=== PATIENT | male | born 1955 ===

== ENCOUNTER 2019-05-01 11:23 | Inpatient (IN) | payer MEDICAID ==
[2019-05-01] MEDS ORDERED: ALPRAZolam 0.25 MG (XANAX) TAB PO PRN (13:00)
[2019-05-01] MEDS ORDERED: LOPERAMIDE 2 MG (IMODIUM) TABLET PO PRN (13:00)
[2019-05-01] MEDS ORDERED: CALCIUM CARBONATE 500 MG (TUMS) TAB.CHEW PO PRN (13:00)
[2019-05-01] MEDS ORDERED: LACTULOSE SYRUP 10GM/15ML (ENULOSE) 30ML UDC PO PRN (13:00)
[2019-05-01] MEDS ORDERED: BISACODYL 10 MG SUPP (DULCOLAX) PR PRN (13:00)
[2019-05-01] MEDS ORDERED: guaiFENesin/CODEINE (ROBITUSSIN AC) 10ML UDC PO PRN (13:00)
[2019-05-01] MEDS ORDERED: DOCUSATE SODIUM 100 MG (COLACE) CAP PO PRN (13:00)
[2019-05-01] MEDS ORDERED: ENOXAPARIN 40 MG/0.4 ML (LOVENOX) SYR SC SCH (13:00)
[2019-05-01] MEDS ORDERED: MELATONIN 3 MG TABLET PO PRN (13:00)
[2019-05-01] MEDS ORDERED: ONDANSETRON 4 MG (ZOFRAN) ORAL DISSOLVE TAB PO PRN (13:00)
[2019-05-01] MEDS ORDERED: FLEET ENEMA ADULT 1 EA BTL PR PRN (13:00)
[2019-05-01] MEDS ORDERED: diphenhydrAMINE 25 MG TAB (BENADRYL) PO PRN (13:00)
[2019-05-01] MEDS ORDERED: CARV6.25 PO (13:53)
[2019-05-01] MEDS ORDERED: ASPI-999 PO (13:56)
[2019-05-01] MEDS ORDERED: RT-ALBUINH IH (13:56)
[2019-05-01] MEDS ORDERED: SACC250C PO (13:56)
[2019-05-01] MEDS ORDERED: VIGAMOX OD (13:56)
[2019-05-01] MEDS ORDERED: TIOT18CA2 IH (13:56)
[2019-05-01] MEDS ORDERED: PRED5DRO17 OD (13:56)
[2019-05-01] MEDS ORDERED: BUDE10.2 IH (13:56)
--- NOTE | 2019-05-01 14:00 | NUR ---
ENTERED MED REC USING [facility] DISCHARGE- I WILL UPDATE ONCE THE CONTINUING MEDS ARE ORDERED
--- NOTE | 2019-05-01 15:10 | NUR ---
Pt admitted to room 232-1, with an admitting diagnosis of S/P ARF, Acute Metabolic Encephalopathy on 05/01/19 from [facility] via w/c, accompanied by S/O, girlfriend, Rosalinda. KINGSTON HANSON introduced to surroundings, call light, bed controls, phone, TV, temperature control, lights, meal times, smoking policy, visitor policy, side rail policy, bathrooms and showers. Patient Rights given to patient in the handbook. KINGSTON HANSON acknowledges understanding that [facility] is not responsible for the loss or damage to any personal effects or valuables that are kept in the patients posession during their hospitalization. The following Patient Care Plans were discussed with the pt: Discharge Planning, Impaired Mobility, Self Care Deficit, Potential for falls/injury, Impaired Cognition. KINGSTON HANSON acknowledges understanding of Interdisciplinary Patient Education. Patient and/or family were informed about the Rapid Response Team and its purpose. Patient received Patient Rights Booklet, which includes Privacy Act Statement and Data Collection Information Summary. Pt to gym to work urvashi Logan PT upon arrival to unit.
--- NOTE | 2019-05-01 15:47 | Physical Therapy Evaluation ---
PT Evaluation-General Medical Diagnosis Admission Date May 01, 2019 at 15:10 Medical Diagnosis: resp. failure Onset Date: Apr 13, 2019 Therapy Diagnosis Therapy Diagnosis: impaired mobility, strength, endurance Referral Physician: Angela Agustin DO Reason for Referral: Evaluation/Treatment Medical History Pertinent Medical History: Arthritis, COPD, HTN Additional Medical History asthma, cataracts, glaucoma Social History Home: Single Level Current Living Status: Spouse PT Steps Into Home: 2 Prior Prior Level of Function SCALE: Activities may be completed with or without assistive devices. 9-Imilqbisss-xxdvews completes the activity by him/herself with no assistance from a helper. 5-Set-up or Clean-up Assistance-helper sets up or cleans up; patient completes activity. [place] assists only prior to or following the activity. 4-Supervision or Touching Assistance-helper provides verbal cues and/or touching/steadying and/or contact guard assistance as patient completes activity. Assistance may be provided throughout the activity or intermittently. 3-Partial/Moderate Assistance-helper does LESS THAN HALF the effort. [place] lifts, holds or supports trunk or limbs, but provides less than half the effort. 2-Substantial/Maximal Assistance-helper does MORE THAN HALF the effort. [place] lifts or holds trunk or limbs and provides more than half the effort. 2-Hwhiojpas-umybzy does ALL the effort. Patient does none of the effort to complete the activity. Or, the assistance of 2 or more helpers is required for the patient to complete the activity. If activity was not attempted, code reason: 7-Patient Refused. 9-Not Applicable-not attempted and the patient did not perform the activity before the current illness, exacerbation or injury. 10-Not Attempted due to Environmental Limitations-(lack of equipment, weather restraints, etc.). 88-Not Attempted due to Medical Conditions or Safety Concerns. Bed Mobility: 6 Transfers (B,C,W/C): 6 Gait: 6 Stairs: 6 Indoor Mobility (Ambulation): Independent Stairs: Independent PT Evaluation-Current Subjective Patient in family vehicle pre tx, agrees to PT, has no complaints of pain. Performs car transfer to with CGA. Pt/Family Goals to be independent at home Objective Patient Orientation: Person, Confused, Place Attachments: Oxygen ROM/Strength ROM Lower Extremities WNL Strength Lower Extremities 4/5 gross RLE, 4-/5 gross LLE Sensory Vision: Functional Hearing: Functional Sensation Right Lower Extremit: Impaired Sensation Left Lower Extremity: Impaired Sensation Lower Extremities Patient has intact light touch sensation in both legs but he states that it is decreased in both feet. Transfers Roll Left to Right (QC): 6 Sit to Lying (QC): 6 Lying to Sitting/Side of Bed(Q: 6 Sit to Stand (QC): 4 Chair/Trj-vo-Rxsws Xfer(QC): 4 Car Transfer (QC): 4 Patient performs bed mobility with independence, supine <-> sit with independence, sit <-> stand with CGA, transfers with CGA, car transfer CGA. Occasional cues for hand placement. Gait Does the Patient Walk?: Yes Mode of Locomotion: Walk Anticipated Mode of Locomotion: Walk Walk 10 feet (QC): 4 Walk 50 ft with 2 Turns(QC): 4 Walk 150 ft (QC): 88 Walking 10ft/uneven surface-QC: 4 Distance: 120', 50' Gait Assistive Device: FWW Comments/Gait Description Patient can ambulate 120' with a rolling walker with CGA. Patient ambulates with a fair surendra but slightly uncoordinated steps. Wheelchair Training Does the Pt Use a Wheelchair?: No Stairs #of Steps: 1 1 Step (curb) (QC): 4 4 Steps (QC): 88 12 Steps (QC): 88 Walking Assistive Device: Walker Patient can go up and down 1 steps using a rolling walker with CGA. Cues for foot placement and safety. Balance Sitting Static: Normal Sitting Dynamic: Normal Standing Static: Fair Standing Dynamic: Fair Assessment/Needs Patient has impaired mobility, strength, endurance. He has slightly uncoordinated steps during ambulation and poor endurance. Patient in recliner post tx with family in the room, OT has him right after PT. Rehab Potential: Fair PT Short Term Goals Short Term Goals Time Frame: May 08, 2019 Roll Left & Right: 6 Sit to lyin Lying to sitting on side of be: 6 Sit to stand: 4 Chair/egz-kc-ajzgv transfer: 4 Toilet transfer: 4 Walk 10 feet: 4 Walk 50 feet with two turns: 4 Walk 150 feet: 4 PT Mcfp Goals Mcfp Goals PT Mcfp Goals Time Frame: May 22, 2019 Roll Left & Right (QC): 6 Sit to Lying (QC): 6 Lying-Sitting on Side/Bed(QC): 6 Sit to Stand (QC): 6 Chair/Tcb-ap-Fndxv Xfer(QC): 6 Toilet Transfer (QC): 6 Car Transfer (QC): 6 Walk 10 feet (QC): 6 Walk 50ft with 2 Turns (QC): 6 Walk 150 ft (QC): 6 Walking 10ft on Uneven Surface: 6 1 Step (curb) (QC): 4 4 Steps (QC): 4 12 Steps (QC): 4 Picking up an Object (QC): 4 PT Plan Problem List Problem List: Activity Tolerance, Functional Strength, Safety, Balance, Gait, Transfer Treatment/Plan Treatment Plan: Continue Plan of Care Treatment Plan: Education, Functional Activity [place], Functional Strength, Group Therapy, Gait, Safety, Therapeutic Exercise, Transfers Treatment Duration: May 22, 2019 Frequency: Modified Program (IRF) Estimated Hrs Per Day: 1.5 hours per day Patient and/or Family Agrees t: Yes Safety Risks/Education Patient Education: Gait Training, Transfer Techniques, Steps, Correct Positioning, Safety Issues Teaching Recipient: Patient Teaching Methods: Demonstration, Discussion Response to Teaching: Reinforcement Needed Discharge Recommendations Plan Patient will perform bed mobility and transfer training, balance and endurance training, functional strengthening, stair training, gait training, and education, to improve functional mobility and independence at home. Therapy Discharge Recommendati: Home & Family Time/GCodes Time In: 1510 Time Out: 1540 Total Billed Treatment Time: 30 Total Billed Treatment 1 visit ANTHONYM 20' GT 10' DANNA MAURER PT May 01, 2019 15:47
--- NOTE | 2019-05-01 16:15 | Occupational Therapy Eval ---
OT Evaluation-General/PLF Medical Diagnosis Admission Date May 01, 2019 at 15:10 Medical Diagnosis: resp. failure Onset Date: Apr 13, 2019 Therapy Diagnosis Therapy Diagnosis: Impaired self care skills Referral Physician: Angela Agustin DO Medical History Pertinent Medical History: Arthritis, COPD, HTN Additional Medical History asthma, cataracts, glaucoma Current History Pt had acute hospitalization for respiratory distress and was intubated. Pt admitted to ARU this date from outside facility. Reviewed History: Yes Social History Home: Single Level Current Living Status: Significant Other Entry Into Home: Stairs Without Railing Steps Into Home: 3 ADL-Prior Level of Function SCALE: Activities may be completed with or without assistive devices. 6-Elcnlvqdog-hsyzzre completes the activity by him/herself with no assistance from a helper. 5-Set-up or Clean-up Assistance-helper sets up or cleans up; patient completes activity. [place] assists only prior to or following the activity. 4-Supervision or Touching Assistance-helper provides verbal cues and/or touching/steadying and/or contact guard assistance as patient completes activit y. Assistance may be provided throughout the activity or intermittently. 3-Partial/Moderate Assistance-helper does LESS THAN HALF the effort. [place] lifts, holds or supports trunk or limbs, but provides less than half the effort. 2-Substantial/Maximal Assistance-helper does MORE THAN HALF the effort. [place] lifts or holds trunk or limbs and provides more than half the effort. 7-Niqrkbsra-rxvzsu does ALL the effort. Patient does none of the effort to complete the activity. Or, the assistance of 2 or more helpers is required for the patient to complete the activity. If activity was not attempted, code reason: 7-Patient Refused. 9-Not Applicable-not attempted and the patient did not perform the activity before the current illness, exacerbation or injury. 10-Not Attempted due to Environmental Limitations-(lack of equipment, weather restraints, etc.). 88-Not Attempted due to Medical Conditions or Safety Concerns. ADL PLOF Comments Pt reports being independent with self care and mobility prior to hospitalization. Pt reports minimal activity level Self Care: Independent Functional Cognition: Independent DME/Equipment: Tub/Shower OT Current Status Subjective Pt agrees to therapy. No c/o pain Mental Status/Objective Patient Orientation: Person, Confused Attachments: Oxygen Current Glasses/Contacts: Yes (reading) Hearing Aids: No Dentures/Partials: No Hand Dominance: Right Upper Extremity ROM Grossly WFL Upper Extremity Coordination Fair Upper Extremity Strength grossly 4/5 ADL-Treatment ADL-Current Pt participate in UE assessment while seated. Pt demonstrated ability to doff/don socks and slip on shoes with SBA for balance. Pt doffed/donned pullover shirt while seated. Attempted to have pt complete grooming tasks. Pt washed face with set up, but then declined to complete oral care or comb hair. Pt demonstrated ability to perform sit to stand with CGA. Education provided regarding role of OT and plan of care. Pt states understanding and is in agreement with plan. Pt sitting in chair with needs met and chair alarm in place after session. Eating (QC): 5 (set up per report) Upper Body Dressing (QC): 5 On/Off Footwear (QC): 4 Education OT Patient Education: Rehab process Teaching Recipient: Patient Teaching Methods: Discussion Response to Teaching: Reinforcement Needed OT Warping Machine Operator Goals Warping Machine Operator Goals Time Frame: May 22, 2019 Eating (QC): 6 Oral Hygiene (QC): 6 Toileting Hygiene (QC): 6 Shower/Bathe Self (QC): 5 Upper Body Dressing (QC): 6 Lower Body Dressing (QC): 6 On/Off Footwear (QC): 6 Additional Goals: 1-Demonstrate ADL Tasks, 2-Verbalize Understanding, 3- ImproveStrength/Westley 1=Demonstrate adherence to instructed precautions during ADL tasks. 2=Patient will verbalize/demonstrate understanding of assistive devices/modifications for ADL. 3=Patient will improve strength/tolerance for activity to enable patient to perform ADL's. Goals established to promote increased functional independence and allow safe discharge plan. OT Education/Plan Problem List/Assessment Assessment: Decreased Activ Tolerance, Decreased Safety Aware, Decreased UE Strength, Dependent Transfers, Impaired I ADL's, Impaired Self-Care Skills Pt admitted to ARU from outside hospital following acute hospitalization for respiratory distress. Pt demonstrates decreased mobility, strength, activity tolerance, and ADL functioning. Pt to benefit from skilled OT intervention for ADL training, transfers, strengthening, and home safety education to increase level of independence and allow safe discharge. Discharge Recommendations Plan/Recommendations: Continue POC Treatment Plan/Plan of Care Patient would benefit from OT for education, treatment and training to promote independence in ADL's, mobility, safety and/or upper extremity function for ADL's. Plan of Care: ADL Retraining, Functional Mobility, Group Exercise/Act as Ind, UE Funct Exercise/Act Treatment Duration: May 22, 2019 Frequency: Modified Program (IRF) (22/09) Estimated Hrs Per Day: 1.5 hours per day Rehab Potential: Fair Time/GCodes Start Time: 15:40 Stop Time: 16:10 Total Time Billed (hr/min): 30 Billed Treatment Time 1 visit, EVM(15minutes), ADL(15minutes) JEFF ATKINS OT May 01, 2019 16:15
--- NOTE | 2019-05-01 16:52 | NUR ---
RN entered room, as heard chair alarm sounding. Pt standing. Pt has been calm up until now. Now, pt is stating that we are, "accusing him of stealing electronics". Pt ranting nonsensical things. Pt trying to use his phone, becoming frustrated when he wasn't able to make calls on it. This RN notified Dr. Agustin of this. Pt's girlfriend, Rosalinda, had stated that pt has been calling her several times a day, telling her to come get him, & take him home." Rosalinda states, "sometimes he talks crazy."
[2019-05-01] MEDS ORDERED: ACETAMINOPHEN 325 MG TABLET PO PRN (17:00)
--- NOTE | 2019-05-01 17:00 | NUR ---
Pt managed to call S/O, gaby Tellez ranting on the phone to her. He gave this RN the phone, Rosalinda states that pt has been doing this at [facility] too. She states that, "they were giving him something to calm him down." Rosalinda states that she will come back & talk w him, see if she can calm him down.
--- NOTE | 2019-05-01 17:14 | NUR ---
Pt sitting in recliner chair, sitting up. Chair exit alarm is on. Pt sitting w head laying on over the bed tray table.
--- NOTE | 2019-05-01 17:35 | NUR ---
Pt still ranting, & talking loudly, inappropriately. Call made to pt's girlfriend, Rosalinda, again & asked her to come back & talk w pt to see if she can settle him down. Rosalinda states that she will be leaving her daughter's home in [place] in about 15 minutes to come back to hospital to talk to him. Rosalinda states that pt, "was the same way in [facility], he was always wanting me to take him home." 1:1 sitter in room now.
--- NOTE | 2019-05-01 17:40 | PM&R Post Admission Assessment ---
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 Patient was admitted to rehab in an uncomplicated manner but he began to have anger issues with the nursing staff and patient constantly asking to go home so he left AMA with his partner in stable status. Patient refused to give me any reliable information and I assessed him only in a brief interview and physical exam finding him to be physically stable. Past Dbkvrgp-Bgpnqt-Xyygit Hx Past Med/Social Hx: Reviewed Nursing Past Med/Soc Hx, Reviewed and Corrections made Patient Social History Marrital Status: cohabiting Employed/Student: unemployed Alcohol Use: Regular Use Smoking Status: Current Everyday Smoker Recent Foreign Travel: No Contact w/other who traveled: No Past Medical History Respiratory: COPD, Emphysema, Pneumonia Cardiac: Hypertension Prior Level of Function Bed Mobility: 6 Transfers: 6 Gait: 6 Stairs: 6 Indoor Mobility (Ambulation): Independent Stairs: Independent Self Care: Independent Functional Cognition: Independent Current Level of Fuctioning Roll Left to Right: 6 Sit to Lyin Lying to Sitting/Side of Bed: 6 Sit to Stand: 4 Chair/Wve-iq-Kiana Xfer: 4 Car Transfer: 4 Does the Patient Walk: Yes Mode of Locomotion: Walk Anticipated Mode of Locomotion: Walk Walk 10 feet: 4 Walk 50 ft with 2 Turns: 4 Walk 150 ft: 88 Walking 10ft on uneven surface: 4 Gait Assistive Device: FWW Does the Pt Use a Wheelchair: No #of Steps: 1 1 Step (curb): 4 4 Steps: 88 Walking Assistive Device: Walker 12 Steps: 88 Eatin (set up per report) Upper Body Dressin On/Off Footwear: 4 PM&R Allergy/Meds/Data Review Allergies Coded Allergies: No Allergy Information Available (Unverified , 05/01/19) Home Medications Scheduled Aspirin (Aspirin), 81 MG PO DAILY, (Reported) Budesonide/Formoterol Fumarate (Symbicort 160-4.5 Mcg Inhaler), 2 PUFF IH DAILY, (Reported) Carvedilol (Coreg), 6.25 MG PO BIDPC, (Reported) Moxifloxacin HCl (Vigamox), 1 DROP OD Q6H, (Reported) Prednisolone Acetate (Prednisolone Acetate), 1 DROP OD Q6H, (Reported) Saccharomyces Boulardii (Florastor), 500 MG PO DAILY, (Reported) Tiotropium [place] (Spiriva), 1 INH IH DAILY, (Reported) Scheduled PRN Albuterol Sulfate (Proair Hfa), 2 PUFF IH Q6H PRN for SHORTNESS OF BREATH, (Reported) Current Medications Current Medications Reviewed Review of Systems Constitutional: see HPI Respiratory: dyspnea on exertion Psychiatric/Neurological: Other (anger issues) Physical Exam Physical Exam Vital Signs Capillary Refill : Height, Weight, BMI Height: '" Weight: lbs. oz. kg; BMI Method: General Appearance: No Apparent Distress, WD/WN, Chronically ill Eyes: Bilateral Eye Normal Inspection, Bilateral Eye PERRL HEENT: PERRL/EOMI, Normal ENT Inspection, Pharynx Normal Neck: Full Range of Motion, Normal Inspection, Non Tender, Supple, Carotid Bruit Respiratory: Chest Non Tender, Lungs Clear, No Accessory Muscle Use, No Respiratory Distress, Decreased Breath Sounds Cardiovascular: Regular Rate, Rhythm, No Edema, No Gallop, No JVD, No Murmur, Normal Peripheral Pulses Gastrointestinal: Normal Bowel Sounds, No Organomegaly, No Pulsatile Mass, Non Tender, Soft Back: Normal Inspection, No CVA Tenderness, No Vertebral Tenderness Extremity: Normal Capillary Refill, Normal Inspection, Normal Range of Motion, Non Tender, No Calf Tenderness, No Pedal Edema Neurologic/Psychiatric: Alert, Oriented x3, No Motor/Sensory Deficits, Normal Mood/Affect, 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 II-XII Norm as Tested, Other (angry) Skin: Normal Color, Warm/Dry Lymphatic: No Adenopathy PM&R Medical Assessment & Plan REHAB/MEDICAL ASSESSMENT AND PLAN: REHAB IMPAIRMENT GROUP: Encephalopathy ETIOLOGIC DIAGNOSIS: Encephalopathy The comorbidities that impact the patients function and/or functional outcome by: alcoholism, smoker, copd, anger issues REHAB PLAN: The patient is being admitted to our comprehensive inpatient rehabilitation facility and can tolerate the intensity of service consisting of at least: 180 minutes of therapy a day, 5 out of 7 days a week Rehab treatment will consist of: PT OT ST will focus on regaining function in order to return home The patient/family has a good understanding of our discharge process and will benefit from an interdisciplinary inpatient rehabilitation program. The patient has potential to make improvement and is in need of at least two of the following multidisciplinary therapies including but not limited to physical, occupational, speech, and prosthetics and orthotics. Additionally the patient will need services from respiratory, nutritional services, wound care, psychology, etc. (Customize this to each patient). Given the patients complex condition and risk of further medical complications, rehabilitation services cannot be safely or effectively provided at a lower level of care such as a half-way facility. BARRIERS TO DISCHARGE: ETOHism and smoker ESTIMATED LOS: 7 days DISPOSITION: Home RELEVANT CHANGES SINCE PREADMISSION SCREENING: I have compared the patients medical and functional status at the time of the preadmission screening and there are: no changes PROGNOSIS: Fair REHABILITATION GOALS: 1. See above All the above goals were reviewed with the patient and he/she is in agreement. By signing this document, I acknowledge that I have personally performed a full physical examination on this patient within 24 hours of admission to this inpatient rehabilitation facility and have determined the patient to be able to tolerate the above course of treatment at an intensive level for a reasonable period of time. I will be completing a detailed individualized Plan of Care for this patient by day #4 of the patients stay based upon the Preadmission Screen, the Post-Admission Evaluation, and the therapy evaluations. Admission Dx/Comorbidities: (1) Encephalopathy ICD Codes: G93.40 - Encephalopathy, unspecified (2) Smoker ICD Codes: F17.200 - Nicotine dependence, unspecified, uncomplicated (3) COPD (chronic obstructive pulmonary disease) ICD Codes: J44.9 - Chronic obstructive pulmonary disease, unspecified (4) Alcoholism ICD Codes: F10.20 - Alcohol dependence, uncomplicated (5) Excessive anger ICD Codes: R45.4 - Irritability and anger HOLLIS STARKEY DO May 01, 2019 17:40
[2019-05-01] MEDS ORDERED: LORazepam INJ 2 MG/ML (ATIVAN) VIAL IM PRN (17:45)
[2019-05-01] MEDS ORDERED: HALOPERIDOL 5 MG/ML (HALDOL) AMP IM PRN (17:45)
[2019-05-01] MEDS ORDERED: CARVEDILOL 6.25 MG (COREG) TAB PO SCH (18:00)
[2019-05-01] MEDS ORDERED: RT-ALBUTEROL/IPRATROPIUM 3 ML (DUONEB) VIAL INH SCH (18:00)
--- NOTE | 2019-05-01 18:02 | NUR ---
Pulled Xanax to give pt, pt refused, states, "no, I don't do pills anymore, of any type." Pt not calling out, "HELP, HELLO". Pt heard talk outside of room, stated, "there she is" thinking that it was his girlfriend, Rosalinda. It wasn't. 1:1 continues.
--- NOTE | 2019-05-01 18:19 | NUR ---
Pt has not allowed staff to take his vitals. Pt refused prn Xanax when offered.
[2019-05-01] MEDS ORDERED: prednisoLONE 1% OPTH (PRED FORTE) 5 ML BTL OD SCH (18:30)
--- NOTE | 2019-05-01 18:42 | NUR ---
Pt's girlfriend, Rosalinda is here, she is talking w pt. Pt still rattled, asking her to take him home. Rosalinda asked me, "can I just take him home to our place ? Notified Dr. Agustin, & [facility] Dye Machine Operator of pt, & S/O Rosalinda's request to go AMA back home. Received order that pt can go home AMA w his girlfriend, Rosalinda, who he lives with. Addendum: 05/01/19 at 2043 by ANGELO TOWNSEND RN Rosalinda states that they have been together for 20 years
--- NOTE | 2019-05-01 18:54 | NUR ---
Pt signed AMA form after form was read aloud to him by this RN.
--- NOTE | 2019-05-01 18:55 | NUR ---
Pt left ADIEL landin his girlfriend, Rosalinda, who brought pt to this facility from [facility]. Rosalinda told this senior mortgage underwriter, "I can't believe they didn't tell you guys that this is how he's been acting." Pt did calm down when Rosalinda arrived, but continued to state that he wanted to get out of here & go home, I'm tired of being in the hospital." This senior mortgage underwriter notified Dr. Agustin, & nursing chimney supervisor brick, rec'd orders that pt could leave [facility]IEL landin girlfriend, Rosalinda. Pt would not allow staff to get vitals while here. 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
[2019-05-01] MEDS ORDERED: MOXIFLOXACIN 0.5% SOL (VIGAMOX) 3 ML BTL OD SCH (19:00)
[2019-05-01] MEDS ORDERED: RT-ADVAIR HFA 115/21 MCG PER PUFF IH SCH (20:00)
--- NOTE | 2019-05-01 20:50 | NUR ---
Pt was cooperative while working w male PT. Pt appeared to become agitated when started working w female staff, wanting to go home w his significant other, Rosalinda, who he has been with for 20 years, she states.
[2019-05-01] MEDS ORDERED: polyethylene glycoL POWDER 17 GM (MIRALAX) PACK PO SCH (21:00)
[2019-05-01] MEDS ORDERED: SENNA W/DOCUSATE (SENOKOT S) TABLET PO SCH (21:00)
[2019-05-01] MEDS ORDERED: MONTELUKAST 10 MG (SINGULAIR) TAB PO SCH (21:00)
[2019-05-01] MEDS ORDERED: risperiDONE 0.25 MG (RisperDAL) TAB PO SCH (21:00)
[2019-05-01] MEDS ORDERED: DOCUSATE SODIUM 100 MG (COLACE) CAP PO SCH (21:00)
[2019-05-02] MEDS ORDERED: UMECLIDINIUM BROMIDE (INCRUSE ELLIPTA) 7'S IH SCH (08:00)
[2019-05-02] MEDS ORDERED: LACTOBACILLUS ACIDOPHILUS (PROBIOTIC) CAPSULE PO SCH (09:00)
[2019-05-02] MEDS ORDERED: FLUTICASONE NASAL SPRAY (FLONASE) 16 GM BTL NS SCH (09:00)
[2019-05-02] MEDS ORDERED: TIOTROPIUM BROMIDE (SPIRIVA) 5'S INHALER IH SCH (09:00)
[2019-05-02] MEDS ORDERED: ASPIRIN 81 MG CHEW (CHILDREN'S ASA) PO SCH (09:00)
[2019-05-02] MEDS ORDERED: NON-FORMULARY MEDICATION 1 EA EA (Budesonide/Formoterol Fumarate (Symbicort 160-4.5 Mcg In IH SCH (09:00)
[2019-05-02] MEDS ORDERED: SACCHAROMYCES BOULARDII 500 MG PO SCH (09:00)
--- NOTE | 2019-05-04 09:24 | Therapy Team Discharge Summary ---
Therapy Discharge Summary Discharge Recommendations Date of Discharge May 01, 2019 at 18:55 Physical Therapy Pt admitted to this unit on 05/01/2019. He was seen for an initial evaluation but did not have subsequent care as patient discharged from this facility the next day, per his request. No treatment rendered beyond the evaluation date and no goals met. DC PT. Occupational Therapy Decreased Activ Tolerance, Decreased Safety Aware, Decreased UE Strength, Dependent Transfers, Impaired I ADL's, Impaired Self-Care Skills PT Sleeve Setter Safety Stitch Goals Sleeve Setter Safety Stitch Goals PT Sleeve Setter Safety Stitch Goals Time Frame: May 22, 2019 Roll Left to Right (QC): 6 Sit to Lying (QC): 6 Lying-Sitting on Side/Bed(QC): 6 Sit to Stand (QC): 6 Chair/Mvd-zx-Ufmdb Xfer(QC): 6 Car Transfer (QC): 6 Walk 10 feet (QC): 6 Walk 10ft-Uneven Surface(QC): 6 Walk 50ft with 2 Turns (QC): 6 Walk 150 ft (QC): 6 1 Step (curb) (QC): 4 4 Steps (QC): 4 12 Steps (QC): 4 Picking up an Object (QC): 4 No goals met, pt seen for initial evaluation only. OT Senior Care Goals Sleeve Setter Safety Stitch Goals Time Frame: May 22, 2019 Eating (QC): 6 Oral Hygiene (QC): 6 Shower/Bathe Self (QC): 5 Upper Body Dressing (QC): 6 Lower Body Dressing (QC): 6 On/Off Footwear (QC): 6 Toileting Hygiene (QC): 6 Toilet/Commode Transfer (QC): 6 Additional Goals: 1-Demonstrate ADL Tasks, 2-Verbalize Understanding, 3- ImproveStrength/Westley 1=Demonstrate adherence to instructed precautions during ADL tasks. 2=Patient will verbalize/demonstrate understanding of assistive reji anuel/modifications for ADL. 3=Patient will improve strength/tolerance for activity to enable patient to perform ADL's. JUSTYN GIRALDO PT May 04, 2019 09:23
--- NOTE | 2019-05-05 11:28 | Therapy Team Discharge Summary ---
Therapy Discharge Summary Discharge Recommendations Date of Discharge May 01, 2019 at 18:55 Occupational Therapy Pt admitted to ARU on 05/01/19 and OT evaluation was completed. On admission pt required SBA to doff/don footwear and was set up for UE dressing. No further OT treatment was completed secondary to pt discharging from facility that same date per his request. Therefore, no OT goals met. D/C ARU OT. Decreased Activ Tolerance, Decreased Safety Aware, Decreased UE Strength, Dependent Transfers, Impaired I ADL's, Impaired Self-Care Skills PT Batcher Operator Goals Batcher Operator Goals PT Senior Care Goals Time Frame: May 22, 2019 Roll Left to Right (QC): 6 Sit to Lying (QC): 6 Lying-Sitting on Side/Bed(QC): 6 Sit to Stand (QC): 6 Chair/Rws-pw-Edrji Xfer(QC): 6 Car Transfer (QC): 6 Walk 10 feet (QC): 6 Walk 10ft-Uneven Surface(QC): 6 Walk 50ft with 2 Turns (QC): 6 Walk 150 ft (QC): 6 1 Step (curb) (QC): 4 4 Steps (QC): 4 12 Steps (QC): 4 Picking up an Object (QC): 4 OT Senior Care Goals Senior Care Goals Time Frame: May 22, 2019 Eating (QC): 6 Oral Hygiene (QC): 6 Shower/Bathe Self (QC): 5 Upper Body Dressing (QC): 6 Lower Body Dressing (QC): 6 On/Off Footwear (QC): 6 Toileting Hygiene (QC): 6 Toilet/Commode Transfer (QC): 6 Additional Goals: 1-Demonstrate ADL Tasks, 2-Verbalize Understanding, 3- ImproveStrength/Westley 1=Demonstrate adherence to instructed precautions during ADL tasks. 2=Patient will verbalize/demonstrate understanding of assistive devices/modifications for ADL. 3=Patient will improve strength/tolerance for activity to enable patient to perform ADL's. JEFF ATKINS OT May 05, 2019 11:28
== END 2019-05-01 18:55 | disposition left against medical advice (07) | DRG 72 ==
LOC: EDBD
PROVIDERS: ADMIT Internal Medicine; ATTEND Internal Medicine
DX: G93.40 Encephalopathy, unspecified (principal); J43.9 Emphysema, unspecified; F17.200 Nicotine dependence, unspecified, uncomplicated; F10.20 Alcohol dependence, uncomplicated; I10 Essential (primary) hypertension; R45.4 Irritability and anger; Z87.01 Personal history of pneumonia (recurrent)